=== PATIENT | female | born 1965 | race Caucasian/White ===

== ENCOUNTER 2016-06-25 04:39 | Emergency (ER) | payer OTHER ==
[2016-06-25 04:46] VITALS: TEMP 98.3; O2SAT 100
--- NOTE | 2016-06-25 05:25 | RAD ---
EXAM DESCRIPTION: Knee,Left 2 or More Views CLINICAL HISTORY: 50 years, Female, PAIN COMPARISON: None. FINDINGS: There is a comminuted displaced fracture of the mid patella. There is soft tissue swelling overlying the fracture. The rest of the bony alignment is normal. There are no significant degenerative changes. IMPRESSION: 1. Comminuted displaced fracture of the mid pole of the patella 2. Soft tissue swelling. Electronically signed by: Thomas Gonzalez MD 06/25/2016 5:24 AM CDT
[2016-06-25] MEDS: MORPHINE SULFATE INJ 10 MG/ML VIAL IM ONE (05:30)
[2016-06-25] MEDS ORDERED: POVIDONE IODINE 10 % 15 ML UD TOP ONE (05:44)
[2016-06-25] MEDS ORDERED: NEOMYCIN-BACITRACIN-POLYMYXIN 0.9 GM UD TOP ONE (05:45)
--- NOTE | 2016-06-25 05:56 | ED.PDOC ---
History of Present Illness - General Chief Complaint: Lower Extremity Injury Stated Complaint: knee pain Time Seen by Provider: 06/25/16 05:28 Source: patient, RN notes reviewed, Vital Signs reviewed Exam Limitations: no limitations - History of Present Illness Initial Comments: Patient is a 50 y/o female who, just [employer], missed a step and fell hitting her left knee on the concrete. She has significant pain in the knee now (10/16). It is an achey pain. She is unable to bend her leg at the knee. Timing/Duration: 1 hour Severity: severe Improving Factors: immobilization Worsening Factors: movement Associated Symptoms: denies symptoms Allergies/Adverse Reactions: Allergies NO KNOWN ALLERGY Allergy (Verified 06/25/16 04:46) Home Medications: Ambulatory Orders Acetaminophen W/ Codeine [Tylenol W/ CODEINE #3] 1 - 2 ea PO Q4H PRN #30 Rivaroxaban [Xarelto] 10 mg PO QD #15 tab 06/25/16 Review of Systems - Review of Systems Constitutional: States: no symptoms reported EENTM: States: no symptoms reported Respiratory: States: no symptoms reported Cardiology: States: no symptoms reported Gastrointestinal/Abdominal: States: no symptoms reported Genitourinary: States: no symptoms reported Musculoskeletal: States: joint pain, joint swelling Skin: States: lesions Neurological: States: no symptoms reported Endocrine: States: no symptoms reported Hematologic/Lymphatic: States: no symptoms reported Past Medical History (General) - Patient Medical History Surgical History: cholecystectomy - Vaccination History Hx Influenza Vaccination: Yes - Social History Hx Tobacco Use: Yes Family Medical History - Family History Mother Family History: Unknown Living Status: Unknown Physical Exam - Physical Exam General Appearance: Alert, Obvious distress Ears, Nose, Throat: hearing grossly normal, normal ENT inspection Respiratory: no respiratory distress, no accessory muscle use Extremity: swelling - Left knee, other - Obvious step off of the patella. Neurologic: no motor/sensory deficits, alert, normal mood/affect, oriented x 3 Skin Exam: warm/dry, other - Mild abrasion to left knee Progress - EKG/XRAY/CT XRAY: knee Xray Comments: Interpreted by me-Left: Displaced comminuted fracture of the patella. - Consult/PCP Time Called: 05:40 Consult/PCP: Dr. Castaneda-Ortho Consult Reason/Comments: May travel with anti-coagulation and immobilization of the knee Departure - Departure Clinical Impression: Patella fracture Qualifiers: Encounter type: initial encounter Fracture type: closed Fracture alignment: displaced Fracture morphology: comminuted Laterality: left Qualifier Code: ( S82.042A) Displaced comminuted fracture of left patella, initial encounter for closed fracture Time of Disposition: 06:00 Disposition: Discharge to Home or Self Care Condition: Fair Departure Forms: ED Discharge - Pt. Copy, Patient Portal Self Enrollment Instructions: DI for Patella Fracture, Patella Fracture Diet: resume usual diet Activity: ambulate only with walker Prescriptions: Acetaminophen W/ Codeine [Tylenol W/ CODEINE #3] 1 - 2 ea PO Q4H PRN #30 PRN Reason: Pain Rivaroxaban [Xarelto] 10 mg PO QD #15 tab Home Medications: Ambulatory Orders Acetaminophen W/ Codeine [Tylenol W/ CODEINE #3] 1 - 2 ea PO Q4H PRN #30 Rivaroxaban [Xarelto] 10 mg PO QD #15 tab 06/25/16 Additional Instructions: Follow up with Ortho when you get home to [place]. Keep leg immobilized and elevated. Ice. Follow up in ED if pain worsens on the way home, or if you have any calf pain or shortness of breath.
[2016-06-25] MEDS: HYDROcodone 10MG/APAP 325MG 1 EA TAB PO ONE (06:01)
[2016-06-25] MEDS: RIVAROXABAN 10 MG TAB PO ONE (06:03)
[2016-06-25] MEDS ORDERED: HYDROCOD/APAP 10/325 (ER DISP) # 3 tablets PO ONE (06:11)
[2016-06-25 06:45] VITALS: BP 136/82
== END 2016-06-25 06:45 | disposition home or self-care (01) ==
LOC: ER 04:39
DX: S82.042A Displaced comminuted fracture of left patella, initial encounter for closed fracture (principal); Z87.891 Personal history of nicotine dependence; W10.9XXA Fall (on) (from) unspecified stairs and steps, initial encounter
CPT/HCPCS: 73560; J2270